=== PATIENT | female | born 1985 | race Caucasian/White ===

== ENCOUNTER 2016-09-25 10:38 | Emergency (ER) | payer SELFPAY ==
--- NOTE | 2016-09-25 10:57 | ER Document Report ---
ED Medical Screen (RME) - General Chief Complaint: Abdominal Pain Stated Complaint: ABDOMINAL PAIN Time Seen by Provider: 09/25/16 10:52 Notes: The patient is a 30-year-old female, past medical history cholecystectomy, multiple C-sections, chronic abdominal pain, presents with worsening right upper quadrant and right lower quadrant abdominal pain for the past 5 days. She is also having nausea and diarrhea. She said that she moved here from [place] and used to be on medical marijuana and opioids for this pain, but since she moved back, she has not established a primary care physician or GI doctor. PE: RUQ and RLQ tenderness. Normal bowel sounds. I have greeted and performed a rapid initial assessment of this patient. A comprehensive ED assessment and evaluation of the patient, analysis of test results and completion of the medical decision making process will be conducted by additional ED providers. TRAVEL OUTSIDE OF THE [place] IN LAST 30 DAYS: No - Related Data Allergies/Adverse Reactions: latex [Latex] Allergy (Severe, Verified 09/25/16 10:42) rash tramadol [Tramadol] Allergy (Verified 09/25/16 10:42) Past Medical History - Past Medical History Cardiac Medical History: Denies: Hx Hypertension, Hx Pulmonary Embolism, Hx Heart Murmur Pulmonary Medical History: Reports: Hx Asthma - on inhaler Denies: Hx Sleep Apnea, Hx Tuberculosis Neurological Medical History: Denies: Hx Cerebrovascular Accident, Hx Seizures Endocrine Medical History: Denies: Hx Hyperthyroidism, Hx Hypothyroidism Renal/ Medical History: Denies: Hx Kidney Stones, Hx Ovarian Cysts, Hx Peritoneal Dialysis, Hx Pelvic Inflammatory Disease Malignancy Medical History: Denies: Hx Breast Cancer, Hx Cervical Cancer, Hx Ovarian Cancer GI Medical History: Denies: Hx Gastroesophageal Reflux Disease, Hx Hiatal Hernia , Hx Ulcer Musculoskeltal Medical History: Denies Hx Fibromyalgia Psychiatric Medical History: Reports: Hx Attention Deficit Hyperactivity Disorder, Hx Depression Denies: Hx Bipolar Disorder, Hx Post Traumatic Stress Disorder, Hx Schizophrenia Traumatic Medical History: Denies: Hx Fractures Infectious Medical History: Denies: Hx HIV Past Surgical History: Reports: Hx Section - x5, Hx Gynecologic Surgery - tube clips, Hx Orthopedic Surgery - rt knee - Immunizations Hx Diphtheria, Pertussis, Tetanus Vaccination: Yes Physical Exam - Vital signs Vitals: Temp Pulse Resp BP Pulse Ox 97.9 F 65 18 138/85 H 99 09/25/16 10:42 09/25/16 10:42 09/25/16 10:42 09/25/16 10:42 09/25/16 10:42 Course - Vital Signs Vital signs: Temp Pulse Resp BP Pulse Ox 97.9 F 65 18 138/85 H 99 09/25/16 10:42 09/25/16 10:42 09/25/16 10:42 09/25/16 10:42 09/25/16 10:42
[2016-09-25] MEDS ORDERED: ONDANSETRON 4 MG TAB.RAPDIS PO ONE (11:00)
[2016-09-25 11:16] LABS: ABSOLUTE BASOPHILS # (AUTO) 0.1 10^3/uL (0.0-0.2); ABSOLUTE EOSINOPHILS # (AUTO) 0.3 10^3/uL (0.0-0.6); ABSOLUTE LYMPHOCYTES (AUTO) 2.4 10^3/uL (0.5-4.7); ABSOLUTE MONOCYTES (AUTO) 0.7 10^3/uL (0.1-1.4); BASOPHILS % (AUTO) 1.3 % (0-2); EOSINOPHILS % (AUTO) 2.6 % (0-6); HEMOGLOBIN 13.9 g/dL (12.0-15.5); HGB HCT DIFFERENCE -0.3; LYMPHOCYTES % (AUTO) 22.8 % (13-45); MEAN CORPUSCULAR HEMOGLOBIN 30.3 pg (27.0-33.4); MEAN CORPUSCULAR VOLUME 92 fl (80-97); MONOCYTES % (AUTO) 6.6 % (3-13); RED BLOOD COUNT 4.58 10^6/uL (3.72-5.28); RED CELL DISTRIBUTION WIDTH 14.8 % (11.5-14.0); SEGMENTED NEUTROPHILS % (AUTO) 66.7 % (42-78); WHITE BLOOD COUNT 10.5 10^3/uL (4.0-10.5)
[2016-09-25 11:21] LABS: APPEARANCE,URINE CLEAR; BILIRUBIN,URINE NEGATIVE (NEGATIVE); GLUCOSE, URINE NEGATIVE (NEGATIVE); KETONES,URINE NEGATIVE (NEGATIVE); LEUKOCYTE ESTERASE,URINE NEGATIVE (NEGATIVE); NITRITE,URINE NEGATIVE (NEGATIVE); PROTEIN,URINE NEGATIVE (NEGATIVE); URINE SPECIFIC GRAVITY 1.008; UROBILINOGEN,URINE NEGATIVE mg/dL (<2.0)
[2016-09-25] MEDS ORDERED: MAG HYDROX/AL HYDROX/SIMETH SUSP 30 ML UDCUP PO ONE (11:25)
[2016-09-25] MEDS ORDERED: LIDOCAINE 2% VISCOUS SOLN 20 ML UDCUP PO ONE (11:25)
[2016-09-25 11:35] LABS: ALANINE AMINOTRANSFERASE 20 U/L (9-52); ALBUMIN 4.3 g/dL (3.5-5.0); ALKALINE PHOSPHATASE 69 U/L (38-126); ANION GAP 10 (5-19); ASPARTATE AMINO TRANSFERASE 15 U/L (14-36); BILIRUBIN,DIRECT 0.2 mg/dL (0.0-0.4); BILIRUBIN,TOTAL 0.5 mg/dL (0.2-1.3); BLOOD UREA NITROGEN 12 mg/dL (7-20); CALCIUM 9.4 mg/dL (8.4-10.2); CARBON DIOXIDE 24 mmol/L (22-30); CHLORIDE 107 mmol/L (98-107); CREATININE RESULT 0.85 mg/dL (0.52-1.25); GLUCOSE 101 mg/dL (75-110); LIPASE 29.2 U/L (23-300); POTASSIUM 4.3 mmol/L (3.6-5.0); SODIUM 141.2 mmol/L (137-145); TOTAL PROTEIN 7.5 g/dL (6.3-8.2)
[2016-09-25 11:44] LABS: URINE BARBITURATES SCREEN NEGATIVE; URINE METHADONE SCREEN NEGATIVE; URINE OPIATES LOW NEGATIVE; URINE PHENCYCLIDINE SCREEN NEGATIVE
[2016-09-25] MEDS ORDERED: KETOROLAC TROMETHAMINE 60 MG/2 ML SDV IM ONE (12:06)
--- NOTE | 2016-09-25 12:11 | ER Document Report ---
ED GI/ - General Chief Complaint: Abdominal Pain Stated Complaint: ABDOMINAL PAIN Time Seen by Provider: 09/25/16 10:52 Notes: Patient is a 30 year old female who presents to the emergency department for acute on chronic abdominal pain. This fhas been for the past 5 days with 2 days of diarrhea. Patient states she recently moved back to the [facility] 3 weeks ago from [place] where she was under care for chronic pain management. She states she has been having abdominal pain for years but more significantly over the past 7 months. She describes it as severe RUQ ache with cramping pain, waxes and wanes in severity, not relieved or exacerbated by food. admits to associated nausea, vomiting, diarrhea. She states this is consistent with her baseline abdominal pain flare ups but would be controlled if she had her medications. She states when it started in March, she had her gall bladder removed without relief of her symptoms. She followed with a GI but never had EGD , coloscopy. Denies h/o PUD, pancreatitis, chrons, UC, IBD. Her medications in [place] include: medical marijuana, oxycodone 5mg tablets TID, and carafate. Denies any other PMH. PSH: c section x5 SH: daily smoker, social etoh, admits to marijuana but denies IVDU no PCP no GI TRAVEL OUTSIDE OF THE [place] IN LAST 30 DAYS: No - Related Data Allergies/Adverse Reactions: latex [Latex] Allergy (Severe, Verified 09/25/16 10:42) rash tramadol [Tramadol] Allergy (Verified 09/25/16 10:42) Past Medical History - Social History Smoking Status: Current Every Day Smoker Chew tobacco use (# tins/day): No Frequency of alcohol use: None Drug Abuse: Marijuana Family History: Reviewed & Not Pertinent Patient has suicidal ideation: No Patient has homicidal ideation: No - Past Medical History Cardiac Medical History: Denies: Hx Hypertension, Hx Pulmonary Embolism, Hx Heart Murmur Pulmonary Medical History: Reports: Hx Asthma - on inhaler Denies: Hx Sleep Apnea, Hx Tuberculosis Neurological Medical History: Denies: Hx Cerebrovascular Accident, Hx Seizures Endocrine Medical History: Denies: Hx Hyperthyroidism, Hx Hypothyroidism Renal/ Medical History: Denies: Hx Kidney Stones, Hx Ovarian Cysts, Hx Peritoneal Dialysis, Hx Pelvic Inflammatory Disease Malignancy Medical History: Denies: Hx Breast Cancer, Hx Cervical Cancer, Hx Ovarian Cancer GI Medical History: Denies: Hx Gastroesophageal Reflux Disease, Hx Hiatal Hernia , Hx Ulcer Musculoskeltal Medical History: Denies Hx Fibromyalgia Psychiatric Medical History: Reports: Hx Attention Deficit Hyperactivity Disorder, Hx Depression Denies: Hx Bipolar Disorder, Hx Post Traumatic Stress Disorder, Hx Schizophrenia Traumatic Medical History: Denies: Hx Fractures Infectious Medical History: Denies: Hx HIV Past Surgical History: Reports: Hx Section - x5, Hx Gynecologic Surgery - tube clips, Hx Orthopedic Surgery - rt knee - Immunizations Hx Diphtheria, Pertussis, Tetanus Vaccination: Yes Hx Pneumococcal Vaccination: 10/06/12 Review of Systems - Review of Systems Constitutional: No symptoms reported Gastrointestinal: See HPI -: Yes All other systems reviewed and negative Physical Exam - Vital signs Vitals: Temp Pulse Resp BP Pulse Ox 97.9 F 65 18 138/85 H 99 09/25/16 10:42 09/25/16 10:42 09/25/16 10:42 09/25/16 10:42 09/25/16 10:42 - Notes Notes: PHYSICAL EXAM GENERAL: Alert, interacts well. LUNGS: Clear to auscultation bilaterally, no wheezes, rales, or rhonchi. No respiratory distress. HEART: Regular rate and rhythm. No murmurs, gallops, or rubs. ABDOMEN: Soft, nondistended, mildly tender. No guarding, rebound, or rigidity.. Bowel sounds present in all 4 quadrants. EXTREMITIES: Moves all 4 extremities spontaneously. No edema, radial and dorsalis pedis pulses 2/4 bilaterally. No cyanosis. NEUROLOGICAL: Alert and oriented x4. Normal speech. PSYCH: Normal affect, normal mood. SKIN: Warm, dry, normal turgor. No rashes or lesions noted. Course - Re-evaluation Re-evalutation: 09/25/16 13:11 Patient is a 30-year-old female who is hemodynamic stable, no acute distress and afebrile. Patient states that her abdominal pain today is consistent with her previous abdominal pain episodes. After performing a Medical Screening Examination, I estimate there is LOW risk for ACUTE APPENDICITIS, BOWEL OBSTRUCTION, ACUTE CHOLECYSTITIS, PERFORATED DIVERTICULITIS, INCARCERATED HERNIA , PANCREATITIS, PELVIC INFLAMMATORY DISEASE, PERFORATED ULCER, ECTOPIC , or TUBO-OVARIAN ABSCESS, thus I consider the discharge disposition reasonable. Also, there is no evidence or peritonitis, sepsis, or toxicity. I have reevaluated this patient multiple times and no significant life threatening changes are noted. The patient and I have discussed the diagnosis and risks, and we agree with discharging home with close follow-up with the understanding that symptoms and presentations can change. We also discussed returning to the Emergency Department immediately if new or worsening symptoms occur. We have discussed the symptoms which are most concerning (e.g., bloody stool, fever, changing or worsening pain, vomiting) that necessitate immediate return. Patient given resources to follow-up in the community given that she is low income and uninsured. And a form was completed to have follow-up with a continuous pillowcase cutter. Per [facility] protocol and guidelines, this case was discussed with supervising physician Dr. Huyen Higuera prior to discharge - Vital Signs Vital signs: Temp Pulse Resp BP Pulse Ox 97.8 F 106 H 17 111/81 98 09/25/16 12:33 09/25/16 12:33 09/25/16 12:33 09/25/16 12:33 09/25/16 12:33 - Laboratory Result Diagrams: 09/25/16 11:00 09/25/16 11:00 Laboratory results interpreted by me: 09/25/16 09/25/16 11:00 11:00 RDW 14.8 H Urine Blood SMALL H Discharge - Discharge Clinical Impression: Abdominal pain Qualifiers: Abdominal location: epigastric Qualified Code(s): R10.13 - Epigastric pain Condition: Good Disposition: HOME, SELF-CARE Instructions: Diarrhea, Nonspecific ([facility]) Additional Instructions: ABDOMINAL PAIN: There are many causes of abdominal pain. Pain can mean a serious problem requiring surgery (such as appendicitis). It can also be an innocent problem that goes away on its own (such as a viral infection). Often, time must pass to determine the cause of pain. The physician does not feel that hospitalization is necessary, at present. Things may change within the next 24 hours. Call the doctor or come back for re- examination if any problems occur, such as: (1) Pain that becomes more severe, steady, or becomes concentrated in one specific area. Also, pain that is more severe with movement or coughing. (2) Vomiting that persists or becomes more frequent. (3) Blood in the vomitus, urine, or bowel movements. Blood in the stool may have a tarry or black appearance. (4) Shaking chills or fever greater than 100 degrees F. (5) The abdomen becomes more distended or swollen. (6) Bowel movements cease. (7) Failure to improve as expected. NORMAL EXAM AND WORKUP: At this time, your examination and workup show no significant abnormality. No significant abnormal physical findings are noted. All laboratory, EKG, and imaging (x-ray, CT scans, ultrasound) studies that were ordered show no significant abnormality. Although your examination and all studies that were ordered showed no significant abnormal finding, there are no examinations and no studies that are 100% accurate. There is always the possibility that some abnormality could exist and not be detected with physical examination or within the limits and capabilities of laboratory and other studies. You should return or follow up as you were instructed on your visit today for further evaluation if your symptoms do not resolve. TORADOL INJECTION: You have been given an injection of ketorolac tromethamine (Toradol). This is an excellent, safe drug for pain control. It also has potent antiinflammatory action. You should have significant pain relief within about one hour. Toradol is not addicting and is non-sedating. It does not interfere with driving or work. Call or return if you develop itching, hives, shortness of breath, or rash. ANTINAUSEA MEDICATION: You have been given a medication to suppress nausea and vomiting. This type of medication can be given as a shot, pill, or suppository. It will usually last for many hours. Pills and shots usually last six to eight hours, suppositories last about 12 hours. For the typical illness, only one or two doses of the medication may be necessary. Mild lightheadedness may occur. This type of medicine can cause drowsiness. Do not drive or operate dangerous machinery while under its influence. Do not mix with alcohol. See your doctor at once if you have muscle spasms or tightness, or uncontrollable motions (particularly of the neck, mouth, or jaw). Persistent vomiting or severe lightheadedness should also be evaluated by the physician. FOLLOW-UP CARE: If you have been referred to a physician for follow-up care, call the physician s office for an appointment as you were instructed or within the next two days. If you experience worsening or a significant change in your symptoms, notify the physician immediately or return to the Emergency Department at any time for re-evaluation. Prescriptions: Ketorolac Tromethamine [Toradol 10 mg Tablet] 10 mg PO Q6HP PRN #20 tablet PRN Reason: Calcium Carbonate/Mag Carb [Mylanta Tablet] 1 tab PO BID PRN #1 bottle PRN Reason: Ondansetron [Zofran Odt 4 mg Tablet] 1 - 2 tab PO Q4H PRN #15 tab.rapdis PRN Reason: For Nausea/Vomiting Pantoprazole Sodium [Protonix] 20 mg PO DAILY #30 tablet. Sucralfate [Carafate 1 gm Tablet] 1 gm PO ACHS #120 tablet Forms: Elevated Blood Pressure Referrals: NERY REINA MD [ACTIVE STAFF] - Follow up as needed EMILIA LÓPEZ MD [ACTIVE STAFF] - 09/26/16 [facility] [NO LOCAL MD] - Follow up as needed
[2016-09-25] MEDS ORDERED: OXYCODONE HCL IR 5 MG TABLET PO ONE (12:36)
[2016-09-25 12:48] VITALS: BP 111/81
== END 2016-09-25 13:05 | disposition home or self-care (01) ==
LOC: ER 10:38
DX: R10.13 Epigastric pain (principal); R10.11 Right upper quadrant pain; G89.29 Other chronic pain; R19.7 Diarrhea, unspecified; R11.2 Nausea with vomiting, unspecified; J45.909 Unspecified asthma, uncomplicated; F17.200 Nicotine dependence, unspecified, uncomplicated; Z90.49 Acquired absence of other specified parts of digestive tract; Z91.040 Latex allergy status; Z88.5 Allergy status to narcotic agent
CPT/HCPCS: 99284; 96372; 36415; 83690; 85025; 81025; 80053; 81001; 80307; J1885; S0119; J3490